=== PATIENT | male | born 1940 | race Caucasian/White ===

== ENCOUNTER 2022-07-07 07:47 | Inpatient (IN) | payer MEDICARE ==
[~2022-07-07] VITALS: Ht 175.3 cm; Wt 99.2 kg
--- NOTE | 2022-07-07 08:07 | NUR ---
RN WITH PT TO CT SCAN
[2022-07-07 08:14] LABS: BASOPHILS # (AUTO) 0.1 X10'3 (0-0.2); BASOPHILS % (AUTO) 1.5 % (0-1); EOSINOPHILS # (AUTO) 0.3 X10'3 (0-0.9); EOSINOPHILS % (AUTO) 3.3 % (0-6); HEMATOCRIT 40.3 % (42.0-52.0); HEMOGLOBIN 13.6 g/dl (14.0-17.9); LYMPHOCYTES # (AUTO) 1.2 X10'3 (1.1-4.8); LYMPHOCYTES % (AUTO) 14.6 % (21-51); MEAN CORPUSCULAR HEMOGLOBIN 32.1 PG (27.0-31.0); MEAN CORPUSCULAR HGB CONC 33.9 g/dL (33.0-36.5); MEAN CORPUSCULAR VOLUME 94.8 FL (78-98); MEAN PLATELET VOLUME 7.4 FL (7.4-10.4); MONOCYTES # (AUTO) 0.8 X10'3 (0-0.9); MONOCYTES % (AUTO) 9.1 % (2-12); NEUTROPHILS # (AUTO) 5.9 X10'3 (1.8-7.7); NEUTROPHILS % (AUTO) 71.5 % (42-75); PLATELET COUNT 253 X10'3 (140-440); RED BLOOD COUNT 4.25 X10'6 (4.70-6.10); RED CELL DISTRIBUTION WIDTH 15.3 % (11.5-14.5); WHITE BLOOD COUNT 8.3 X10'3 (4.5-11.0)
--- NOTE | 2022-07-07 08:20 | NUR ---
called [facility] for claification on patient last known normal. spoke with charge nurse Stephanie who states pt was "normal" yesterday and up and walking without any abnormality. Around "shift change last night" which is 183 at [facility], pt was "pretending to not wake up" and had to be sternal rubbed to get a response. states he was more "abnormal" this morning at 0510 when he was found to be "obtunded and needed really hard sternal rubs" which prompted the ems call and transport to [facility].
[2022-07-07 08:37] LABS: ALANINE AMINOTRANSFERASE 32 U/L (12-78); ALBUMIN 2.7 G/DL (3.4-5.0); ALBUMIN/GLOBULIN RATIO 0.6 (1.1-1.5); ALKALINE PHOSPHATASE 80 IU/L (46-116); ANION GAP 6 (8-16); ASPARTATE AMINO TRANSFERASE 29 U/L (10-37); BILIRUBIN,TOTAL 0.8 MG/DL (0.1-1.0); BLOOD UREA NITROGEN 23 MG/DL (7-18); CALCIUM 9.2 MG/DL (8.5-10.1); CHLORIDE 105 MMOL/L (99-107); CREATININE 0.92 MG/DL (0.60-1.10); GLUCOSE 130 MG/DL (70-104); POTASSIUM 4.6 MMOL/L (3.5-5.1); SODIUM 137 MMOL/L (135-145); TOTAL CARBON DIOXIDE 25.8 MMOL/L (24-32); TOTAL PROTEIN 7.6 G/DL (6.4-8.2); eGFR 79 ML/MIN
[2022-07-07 08:55] LABS: APTT 54 SECONDS (22-32)
[2022-07-07] MEDS ORDERED: iohexol 350MG/ML 100ml bottle IV ONE (09:14)
--- NOTE | 2022-07-07 09:35 | NUR ---
PT OFF UNIT FOR CTA
[2022-07-07] MEDS: MESSAGE TO NURSING PO SCH ×2 (09:45→10:00)
--- NOTE | 2022-07-07 09:48 | NUR ---
PATIENT IS MORE LUCID, HE IS AWAKE, ORIENTED TO PERSON AND PLACE. ABLE TO FOLLOW SIMPLE COMMANDS AND MAKE NEEDS KNOWN. EQUAL STRENGHT ON UPPER AND LOWER EXTS. MONITORING ONGOING
[2022-07-07] MEDS ORDERED: magnesium 2GM in 50ml NS 50 ML IV PRN (11:35)
[2022-07-07] MEDS ORDERED: magnesium Cl slow-release 64mg tablet PO PRN (11:35)
[2022-07-07] MEDS ORDERED: potassium CL 10mEq/100ml bag 100 ML IV PRN (11:35)
[2022-07-07] MEDS ORDERED: acetaminophen 325mg tablet PO PRN (11:35)
[2022-07-07] MEDS ORDERED: magnesium 4gm in 100ml NS 100 ML IV PRN (11:35)
[2022-07-07] MEDS ORDERED: magnesium hydroxide 30ml (MOM) UD suspension PO PRN (11:35)
[2022-07-07] MEDS ORDERED: ondansetron/PF 4mg/2ml inj IV PRN (11:35)
[2022-07-07] MEDS ORDERED: mag hydrox/Alum hydrox/simeth 30ml oral suspension PO PRN (11:35)
[2022-07-07] MEDS ORDERED: POTASSIUM BICARB 20meq eff tab 20 MEQ TABLET.EFF PO PRN ×2 (11:35)
[2022-07-07] MEDS: normal saline 1000ml 1,000 ML IV SCH ×2 (12:47→15:12)
[2022-07-07 13:43] LABS: CHOL/HDL RATIO 4.2 (0.00-4.99); CHOLESTEROL 138 MG/DL (0-200); HDL CHOLESTEROL 33 MG/DL (35-60); LDL CHOLESTEROL 87 MG/DL (50-100); MAGNESIUM 1.8 MG/DL (1.5-2.4); POTASSIUM 4.4 MMOL/L (3.5-5.1); TRIGLYCERIDES 82 MG/DL (20-135)
[2022-07-07] MEDS ORDERED: WARF4TAB69 PO (13:48)
[2022-07-07] MEDS ORDERED: [UNRECOGNIZED DRUG - CODE] PO (13:48)
[2022-07-07] MEDS ORDERED: METF-438 PO (13:48)
[2022-07-07 15:00] VITALS: BP 126/64
[2022-07-07 18:00] VITALS: BP 112/61
--- NOTE | 2022-07-07 18:05 | NUR ---
Wound care provided to deep sacral wound, cleaned with wound cleanser spray and normal saline. patted dry, wet to dry dressing, whole kerlix roll moistened with saline, 4 x 4's, Dry 4x4's, dry ABD pad and foam tape. Wound care consult is herminia lara.
--- NOTE | 2022-07-07 18:32 | NUR ---
Problems reprioritized. Patient report given, questions answered & plan of care reviewed with CLARA Johnson.
[2022-07-07] MEDS ORDERED: metFORMIN 500mg tablet PO SCH (20:00)
[2022-07-07] MEDS: K and/or MAG REPLACEMENT MC SCH (20:00)
[2022-07-07] MEDS: docusate sod 100mg capsule PO SCH (21:09)
[2022-07-07] MEDS: warfarin 4mg tablet PO SCH (21:09)
[2022-07-07] MEDS: cefepime 2g/NS 100ml ADVANTAGE 100 ML IV SCH (21:10)
[2022-07-07 22:00] VITALS: BP 131/61
[2022-07-08] MEDS: normal saline 1000ml 1,000 ML IV SCH ×3 (01:13→18:43)
[2022-07-08 02:00] VITALS: BP 119/65
[2022-07-08 06:00] VITALS: BP 128/56
[2022-07-08 06:01] LABS: EOSINOPHILS # (AUTO) 0.3 X10'3 (0-0.9); MEAN CORPUSCULAR HEMOGLOBIN 31.7 PG (27.0-31.0); MEAN CORPUSCULAR HGB CONC 33.7 g/dL (33.0-36.5); MEAN PLATELET VOLUME 7.9 FL (7.4-10.4)
[2022-07-08 06:04] LABS: BASOPHILS % (AUTO) 0.5 % (0-1); EOSINOPHILS % (AUTO) 4.2 % (0-6); HEMATOCRIT 34.7 % (42.0-52.0); HEMOGLOBIN 11.7 g/dl (14.0-17.9); LYMPHOCYTES # (AUTO) 1.1 X10'3 (1.1-4.8); LYMPHOCYTES % (AUTO) 15.4 % (21-51); MEAN CORPUSCULAR VOLUME 93.9 FL (78-98); MONOCYTES # (AUTO) 0.7 X10'3 (0-0.9); MONOCYTES % (AUTO) 10.2 % (2-12); NEUTROPHILS # (AUTO) 4.9 X10'3 (1.8-7.7); NEUTROPHILS % (AUTO) 69.7 % (42-75); PLATELET COUNT 205 X10'3 (140-440); RED CELL DISTRIBUTION WIDTH 15.5 % (11.5-14.5)
[2022-07-08 06:13] LABS: ALBUMIN 2.2 G/DL (3.4-5.0); ANION GAP 6 (8-16); BLOOD UREA NITROGEN 17 MG/DL (7-18); BUN/CREATININE RATIO 26.6 (5.4-32.0); CALCIUM 8.2 MG/DL (8.5-10.1); CHLORIDE 107 MMOL/L (99-107); CREATININE 0.64 MG/DL (0.60-1.10); GLUCOSE 116 MG/DL (70-104); SODIUM 138 MMOL/L (135-145); TOTAL CARBON DIOXIDE 24.9 MMOL/L (24-32); eGFR > 90 ML/MIN
--- NOTE | 2022-07-08 06:30 | NUR ---
Patient in room PCU 3028. I have received report from CLARA Johnson, and had the opportunity to ask questions and assume patient care.
[2022-07-08] MEDS: K and/or MAG REPLACEMENT MC SCH ×2 (07:46→20:00)
[2022-07-08] MEDS: docusate sod 100mg capsule PO SCH ×2 (07:49→19:34)
[2022-07-08] MEDS: aspirin 81mg, enteric-coated 1 TAB TABLET.DR PO SCH (07:50)
[2022-07-08] MEDS: atenolol 50mg tablet PO SCH (07:50)
[2022-07-08] MEDS: cefepime 2g/NS 100ml ADVANTAGE 100 ML IV SCH ×2 (07:51→19:35)
[2022-07-08] MEDS: MESSAGE TO NURSING PO SCH (10:00)
[2022-07-08 11:00] VITALS: BP 105/60
--- NOTE | 2022-07-08 12:11 | NUR ---
PAGER ID: [phone] MESSAGE: CLARA Patel, PCU [id number], re: Anel 3028B, has met protocol, last 2 glucose >160, please order the hyperglycemic protocol, ty
--- NOTE | 2022-07-08 14:00 | NUR ---
PAGER ID: [phone] MESSAGE: CLARA Patel, PCU, [id number], 0266B, Penny, needs hyperglycemic protocol ordered, has had 2 glucose>160, thank you
[2022-07-08] MEDS ORDERED: glucagon, human recombinant 1mg kit SUBCUT PRN (14:15)
[2022-07-08] MEDS ORDERED: MESSAGE TO PHARMACY PO ONE (14:15)
[2022-07-08] MEDS ORDERED: dextrose 50%-water 50ml dispensing syringe IV PRN ×2 (14:15)
[2022-07-08] MEDS ORDERED: DEXTROSE 15 GM of carb/4 tabs (each vial/BOTTLE has 4 tablets) PO PRN ×2 (14:15)
[2022-07-08 15:00] VITALS: BP 109/53
--- NOTE | 2022-07-08 15:07 | NUR ---
PRESSURE ULCER EDUCATION: DEFINITION: A pressure ulcer is an area of skin that breaks down when you stay in one position too long. The constant pressure against the skin reduces the blood flow to that area and the affected tissue dies. CAUSES: "Being bedridden or in a wheelchair "Fragile skin "Having a chronic condition, such as diabetes or vascular disease "Inability to move certain parts of your body without assistance "Older age "Incontinence of urine or stool SYMPTOMS: "A reddened area that DOES NOT turn white when pressed on - this can be the beginning of a pressure ulcer "A blister, deep sore or a crater - these can be advanced pressure ulcers FIRST AID: "Relieve the pressure on this area "Keep the area clean and dry "Call your primary doctor if you see any of the above symptoms "DO NOT massage the area "DO NOT use a donut shaped or ring shaped pillow- these actually interfere with the blood flow and cause complications PREVENTION: "Check for pressure ulcers everyday "Change position at least every two hours to relieve pressure "Use items that help relieve pressure- pillows, sheepskin, foam padding, and powders. "Keep skin clean and dry "Eat healthy well balanced meals "Exercise daily IF YOU SEE ANY OF THESE SYMPTOMS WHILE IN THE HOSPITAL - TELL YOUR NURSE IMMEDIATELY. IF YOU SEE ANY OF THESE SYMPTOMS WHILE AT HOME OR HAVE ANY QUESTIONS OR CONCERNS ABOUT PRESSURE ULCERS - CALL YOUR PRIMARY DOCTOR IMMEDIATELY. Addendum: 07/08/22 at 1508 by Elba Li RN Amended: Links added.
--- NOTE | 2022-07-08 15:27 | NUR ---
PAGER ID: [phone] MESSAGE: CLARA Patel, PCU [id number], Pt [facility], 3028B, Nutrition requests pt have a multivitamin and Hitesh gonzalez for wound healing, Thank you
--- NOTE | 2022-07-08 15:36 | NUR ---
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 Pt hx T2DM A1C 7.0% Glu 107-180mg/dl without carb controlled diet or glycemic protocol this admit per EMR. A1C acceptance range given age and significant wound hx; DM ed deferred at this time. Pt reports 14-23lb wt loss w/ decreased intake BUSINESS CONTINUITY DIRECTOR per RN Malnutrition Screen. Pt current bed scaled wt 95.9kg giving BMI 31.2 appears well-developed per ER note. Pt has BLE trace edema, mild weakness, and PO ~100% initial heart healthy/MM5 meals lacking minimum malnutrition criteria at this time. RD d/w RN recommends Hitesh smoothie BID and MVI for wound healing needs if MD agreeable; RN agrees to d/w MD. Pt possible return to [facility] tomorrow per CM note. LBM 07/07. Will monitor for further nutrition intervention needs this admit. Rec: 1. 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 Hitesh smoothie BID for wound healing needs if MD agreeable 3. MVI for wound healing needs 4. bowel care per rx 5. weekly wts Addendum: 07/08/22 at [address] Amended: Links added.
--- NOTE | 2022-07-08 16:04 | NUR ---
PAGER ID: [phone] MESSAGE: CLARA Patel, PCU [id number], Pt [facility], 3028B, Nutrition requests pt have a multivitamin and Hitesh gonzalez for wound healing, Thank you
[2022-07-08 18:00] VITALS: BP 141/60
--- NOTE | 2022-07-08 18:51 | NUR ---
Problems reprioritized. Patient report given, questions answered & plan of care reviewed with CLARA Johnson.
[2022-07-08] MEDS: insulin Lispro (HumaLOG) vial - multi-dose SQ SCH (19:32)
[2022-07-08] MEDS: insulin glargine (Lantus) pen - multi-dose SQ SCH (21:00)
[2022-07-08] MEDS: warfarin 4mg tablet PO SCH (21:47)
[2022-07-08 22:00] VITALS: BP 145/63
[2022-07-09 02:00] VITALS: BP 133/61
[2022-07-09] MEDS: normal saline 1000ml 1,000 ML IV SCH ×2 (05:22→13:35)
[2022-07-09 06:00] VITALS: BP 152/70
[2022-07-09 07:12] LABS: BASOPHILS # (AUTO) 0.1 X10'3 (0-0.2); BASOPHILS % (AUTO) 0.8 % (0-1); EOSINOPHILS # (AUTO) 0.3 X10'3 (0-0.9); EOSINOPHILS % (AUTO) 4.4 % (0-6); HEMATOCRIT 32.9 % (42.0-52.0); LYMPHOCYTES # (AUTO) 1.3 X10'3 (1.1-4.8); LYMPHOCYTES % (AUTO) 20.7 % (21-51); MEAN CORPUSCULAR HEMOGLOBIN 31.7 PG (27.0-31.0); MEAN CORPUSCULAR HGB CONC 33.5 g/dL (33.0-36.5); MEAN CORPUSCULAR VOLUME 94.7 FL (78-98); MEAN PLATELET VOLUME 7.7 FL (7.4-10.4); MONOCYTES # (AUTO) 0.8 X10'3 (0-0.9); NEUTROPHILS # (AUTO) 3.8 X10'3 (1.8-7.7); NEUTROPHILS % (AUTO) 61.1 % (42-75); PLATELET COUNT 198 X10'3 (140-440); RED BLOOD COUNT 3.48 X10'6 (4.70-6.10); RED CELL DISTRIBUTION WIDTH 15.4 % (11.5-14.5); WHITE BLOOD COUNT 6.2 X10'3 (4.5-11.0)
[2022-07-09] MEDS: atorvastatin 20mg tablet PO SCH (07:51)
[2022-07-09] MEDS: aspirin 81mg, enteric-coated 1 TAB TABLET.DR PO SCH (07:51)
[2022-07-09] MEDS: cefepime 2g/NS 100ml ADVANTAGE 100 ML IV SCH ×2 (07:51→20:45)
[2022-07-09] MEDS: atenolol 50mg tablet PO SCH (08:00)
[2022-07-09] MEDS: docusate sod 100mg capsule PO SCH ×2 (08:00→20:45)
[2022-07-09] MEDS: K and/or MAG REPLACEMENT MC SCH ×2 (08:00→20:00)
[2022-07-09 08:06] LABS: ALBUMIN 2.2 G/DL (3.4-5.0); ANION GAP 9 (8-16); BLOOD UREA NITROGEN 11 MG/DL (7-18); BUN/CREATININE RATIO 17.5 (5.4-32.0); CALCIUM 8.1 MG/DL (8.5-10.1); CHLORIDE 111 MMOL/L (99-107); CREATININE 0.63 MG/DL (0.60-1.10); GLUCOSE 117 MG/DL (70-104); POTASSIUM 4.1 MMOL/L (3.5-5.1); SODIUM 141 MMOL/L (135-145); eGFR > 90 ML/MIN
[2022-07-09 11:00] VITALS: BP 138/69
[2022-07-09 15:00] VITALS: BP 157/67
[2022-07-09 18:00] VITALS: BP 142/67
[2022-07-09] MEDS: insulin Lispro (HumaLOG) vial - multi-dose SQ SCH (19:22)
[2022-07-09] MEDS: warfarin 4mg tablet PO SCH (20:46)
[2022-07-09] MEDS: insulin glargine (Lantus) pen - multi-dose SQ SCH (21:00)
[2022-07-09 22:00] VITALS: BP 139/61
[2022-07-10 02:00] VITALS: BP 148/60
[2022-07-10] MEDS: normal saline 1000ml 1,000 ML IV SCH (02:09)
[2022-07-10 06:00] VITALS: BP 150/66
[2022-07-10 06:50] LABS: BASOPHILS # (AUTO) 0.1 X10'3 (0-0.2); EOSINOPHILS # (AUTO) 0.3 X10'3 (0-0.9); EOSINOPHILS % (AUTO) 5.9 % (0-6); HEMOGLOBIN 11.2 g/dl (14.0-17.9); LYMPHOCYTES # (AUTO) 1.3 X10'3 (1.1-4.8); LYMPHOCYTES % (AUTO) 23.3 % (21-51); MEAN CORPUSCULAR HEMOGLOBIN 31.9 PG (27.0-31.0); MEAN CORPUSCULAR VOLUME 93.7 FL (78-98); MEAN PLATELET VOLUME 7.7 FL (7.4-10.4); MONOCYTES # (AUTO) 0.7 X10'3 (0-0.9); MONOCYTES % (AUTO) 11.8 % (2-12); NEUTROPHILS # (AUTO) 3.2 X10'3 (1.8-7.7); PLATELET COUNT 200 X10'3 (140-440); RED BLOOD COUNT 3.53 X10'6 (4.70-6.10); WHITE BLOOD COUNT 5.6 X10'3 (4.5-11.0)
[2022-07-10 06:51] LABS: ALBUMIN 2.1 G/DL (3.4-5.0); ANION GAP 8 (8-16); BLOOD UREA NITROGEN 8 MG/DL (7-18); BUN/CREATININE RATIO 11.9 (5.4-32.0); CALCIUM 7.9 MG/DL (8.5-10.1); CHLORIDE 112 MMOL/L (99-107); CREATININE 0.67 MG/DL (0.60-1.10); GLUCOSE 107 MG/DL (70-104); POTASSIUM 4.6 MMOL/L (3.5-5.1); SODIUM 144 MMOL/L (135-145); TOTAL CARBON DIOXIDE 24.3 MMOL/L (24-32); eGFR > 90 ML/MIN
[2022-07-10] MEDS: K and/or MAG REPLACEMENT MC SCH (08:00)
--- NOTE | 2022-07-10 09:05 | NUR ---
Paged Case Mgmt [id number]. Anel. Pt worried about insurance. I.
[2022-07-10 09:21] VITALS: BP_SYST 150
[2022-07-10] MEDS: atorvastatin 20mg tablet PO SCH (09:21)
[2022-07-10] MEDS: docusate sod 100mg capsule PO SCH (09:21)
[2022-07-10] MEDS: aspirin 81mg, enteric-coated 1 TAB TABLET.DR PO SCH (09:21)
[2022-07-10] MEDS: atenolol 50mg tablet PO SCH (09:21)
[2022-07-10] MEDS: cefepime 2g/NS 100ml ADVANTAGE 100 ML IV SCH (09:22)
--- NOTE | 2022-07-10 11:00 | NUR ---
Report called to [facility], spoke with MARILYN Barrow. All questions, comments, concerns answered at this time. PIV left in place per their request. [facility] transferred via gurney. Pt did not have any personal belongings. No number for family.
--- NOTE | 2022-07-10 11:30 | NUR ---
PRESSURE ULCER EDUCATION: DEFINITION: A pressure ulcer is an area of skin that breaks down when you stay in one position too long. The constant pressure against the skin reduces the blood flow to that area and the affected tissue dies. CAUSES: "Being bedridden or in a wheelchair "Fragile skin "Having a chronic condition, such as diabetes or vascular disease "Inability to move certain parts of your body without assistance "Older age "Incontinence of urine or stool SYMPTOMS: "A reddened area that DOES NOT turn white when pressed on - this can be the beginning of a pressure ulcer "A blister, deep sore or a crater - these can be advanced pressure ulcers FIRST AID: "Relieve the pressure on this area "Keep the area clean and dry "Call your primary doctor if you see any of the above symptoms "DO NOT massage the area "DO NOT use a donut shaped or ring shaped pillow- these actually interfere with the blood flow and cause complications PREVENTION: "Check for pressure ulcers everyday "Change position at least every two hours to relieve pressure "Use items that help relieve pressure- pillows, sheepskin, foam padding, and powders. "Keep skin clean and dry "Eat healthy well balanced meals "Exercise daily IF YOU SEE ANY OF THESE SYMPTOMS WHILE IN THE HOSPITAL - TELL YOUR NURSE IMMEDIATELY. IF YOU SEE ANY OF THESE SYMPTOMS WHILE AT HOME OR HAVE ANY QUESTIONS OR CONCERNS ABOUT PRESSURE ULCERS - CALL YOUR PRIMARY DOCTOR IMMEDIATELY. Addendum: 07/10/22 at 1134 by Amanda Gil LVN Amended: Links added.
--- NOTE | 2022-07-17 11:44 | NUR ---
Case [facility]
== END 2022-07-10 11:38 | DRG 91 ==
LOC: ER 07:47 → ED HOLD 11:42 → EDBEDREQ 13:34 → PCU 3S 14:15
PROVIDERS: ADMIT Family Medicine; ATTEND Family Medicine
PROC: B3251ZZ Computerized Tomography (CT Scan) of Bilateral Common Carotid Arteries using Low Osmolar Contrast (ICD-10-PCS; 2022-07-07)
PROC: B32G1ZZ Computerized Tomography (CT Scan) of Bilateral Vertebral Arteries using Low Osmolar Contrast (ICD-10-PCS; 2022-07-07)
PROC: B32R1ZZ Computerized Tomography (CT Scan) of Intracranial Arteries using Low Osmolar Contrast (ICD-10-PCS; 2022-07-07)
PROC: B3281ZZ Computerized Tomography (CT Scan) of Bilateral Internal Carotid Arteries using Low Osmolar Contrast (ICD-10-PCS; 2022-07-07)
PROC: 4A10X4Z Monitoring of Central Nervous Electrical Activity, External Approach (ICD-10-PCS; principal; 2022-07-08)
DX: G92.9 Unspecified toxic encephalopathy (principal); L89.154 Pressure ulcer of sacral region, stage 4; I50.22 Chronic systolic (congestive) heart failure; M46.38 Infection of intervertebral disc (pyogenic), sacral and sacrococcygeal region; B96.5 Pseudomonas (aeruginosa) (mallei) (pseudomallei) as the cause of diseases classified elsewhere; Z66 Do not resuscitate; E11.9 Type 2 diabetes mellitus without complications; I66.02 Occlusion and stenosis of left middle cerebral artery; I11.0 Hypertensive heart disease with heart failure; I48.91 Unspecified atrial fibrillation; R94.01 Abnormal electroencephalogram [EEG]; Z79.01 Long term (current) use of anticoagulants; Z86.73 Personal history of transient ischemic attack (TIA), and cerebral infarction without residual deficits; Z79.4 Long term (current) use of insulin; Z86.16 Personal history of COVID-19; Z79.899 Other long term (current) drug therapy; Z79.82 Long term (current) use of aspirin
CPT/HCPCS: 36415; 70450; 70496; 70498; 70544; 70551; 71045; 80048; 80053; 80061; 82948; 83036; 83605; 83735; 84132; 85025; 85610; 85730; 87040; 87081; 92508; 92616; 93005; 93308; 95816; 97161; 97530; 99285; A4649; A6196; A6253; A6260; A6446; A6449; G0378; J0692; J1815; J3490; J7030; J7070; Q9967

== ENCOUNTER → 2022-07-30 | Outpatient (CLI) | payer OTHER ==
[~2022-07-30] MED LIST: GADOTERATE MEGLUMINE 7.5 MMOL/15 ML VIAL IV ONE; METF-438 PO; WARF4TAB69 PO; [UNRECOGNIZED DRUG - CODE] PO
== END | disposition home or self-care (01) ==
LOC: RAD 11:29
PROVIDERS: ATTEND Emergency Medicine
DX: L89.154 Pressure ulcer of sacral region, stage 4 (principal); R68.89 Other general symptoms and signs; M79.89 Other specified soft tissue disorders
CPT/HCPCS: 72195; A9575